=== PATIENT | male | born 1990 | race Caucasian/White ===

== ENCOUNTER 2021-10-13 17:59 | Emergency (ER) | payer BC, OTHER ==
--- NOTE | 2021-10-13 18:35 | EDM.PDOC ---
ED HPI GENERAL MEDICAL PROBLEM - General Chief Complaint: General Stated Complaint: FLU-LIKE SYMPTOMS Time Seen by Provider: 10/13/21 18:15 Source of Information: Reports: Patient History Limitations: Reports: No Limitations - History of Present Illness INITIAL COMMENTS - FREE TEXT/NARRATIVE: 31 YO WM PRESENTS TO ER COMPLAINING OF FEVER/CHILLS WITH BODY ACHES AND HEADACHE X 5 DAYS. PT REPORTS HE RECEIVED THE J AND J VACCINE 5 DAYS AGO AND BY THE AFTERNOON THAT DAY DEVELOPED FATIGUE WITH BODY ACHES AND CHILLS. PT REPORTS E SLEPT MOST OF THE DAY AND THE FOLLOWING DAY, BUT FELT BETTER OVER THE LAST 2 DAYS. PT STATES TODAY HE DEVELOPED A BAD HEADACHE ALONG WITH FEVER/CHILLS. PT DENIES CHEST PAIN OR SHORTNESS OF BREATH. PT DENIES N/V/D. Onset Date: 10/09/21 Duration: Day(s): (5) Location: Reports: Generalized Quality: Reports: Ache Severity: Mild Improves with: Reports: Rest Worsens with: Reports: Movement Associated Symptoms: Reports: Cough, Fever/Chills, Malaise. Denies: Chest Pain, Nausea/Vomiting, Shortness of Breath Treatments [employer]ATOR: Reports: Acetaminophen Generalized Pain Score (Numeric/FACES): 7 - Related Data Allergies Allergy/AdvReac Type Severity Reaction Status Date / Time No Known Drug Allergies Allergy Other Verified 10/13/21 18:29 Home Meds: Home Meds . [No Known Home Meds] 04/15/16 [History] Past Medical History - Past Health History Medical/Surgical History: Denies Medical/Surgical History ED ROS GENERAL - Review of Systems Review Of Systems: See Below Constitutional: Reports: Fever, Chills, Malaise HEENT: Reports: Rhinitis Respiratory: Reports: Cough Cardiovascular: Reports: No Symptoms Endocrine: Reports: No Symptoms GI/Abdominal: Reports: No Symptoms : Reports: No Symptoms Musculoskeletal: Reports: No Symptoms Skin: Reports: No Symptoms Neurological: Reports: No Symptoms Psychiatric: Reports: No Symptoms Hematologic/Lymphatic: Reports: No Symptoms Immunologic: Reports: No Symptoms ED EXAM, GENERAL - Physical Exam Exam: See Below Exam Limited By: No Limitations General Appearance: Alert, WD/WN, No Apparent Distress Ears: Normal External Exam, Normal Canal, Hearing Grossly Normal, Normal TMs Nose: Clear Rhinorrhea Throat/Mouth: Normal Inspection, Normal Lips, Normal Teeth, Normal Gums, Normal Oropharynx, Normal Voice, No Airway Compromise Head: Atraumatic, Normocephalic Neck: Normal Inspection, Supple, Non-Tender, Full Range of Motion Respiratory/Chest: No Respiratory Distress, Lungs Clear, Normal Breath Sounds, No Accessory Muscle Use, Chest Non-Tender Cardiovascular: Normal Peripheral Pulses, Regular Rate, Rhythm, No Edema, No Gallop, No JVD, No Murmur, No Rub GI/Abdominal: Normal Bowel Sounds, Soft, Non-Tender, No Organomegaly, No Distention, No Abnormal Bruit, No Mass Back Exam: Normal Inspection, Full Range of Motion, NT Extremities: Normal Inspection, Normal Range of Motion, Non-Tender, Normal Capillary Refill, No Pedal Edema Neurological: Alert, Oriented, CN II-XII Intact, Normal Cognition, Normal Gait, No Motor/Sensory Deficits Psychiatric: Normal Affect, Normal Mood Skin Exam: Warm, Dry, Intact, Normal Color, No Rash Lymphatic: No Adenopathy Course - Vital Signs Last Recorded V/S: Last Vital Signs Temp 97.5 F 10/13/21 18:20 Pulse 82 10/13/21 19:00 Resp 16 10/13/21 18:20 BP 121/76 10/13/21 19:00 Pulse Ox 95 10/13/21 19:00 - Orders/Labs/Meds Orders: Active Orders 24 hr Category Date Time Status COVID-19/FLU A+B [[facility]] Stat Lab 10/13/21 18:37 Ordered Labs: COVID- POSITIVE INFLUENZA A AND B NEGATIVE Meds: Medications Discontinued Medications Generic Name Dose Route Start Last Admin Trade Name Freq PRN Reason Stop Dose Admin Ketorolac Tromethamine 60 mg 10/13/21 18:37 10/13/21 18:54 Ketorolac 60 Mg/2 Ml Sdv IM 10/13/21 18:38 60 mg ONETIME ONE Administration Departure - Departure Time of Disposition: 19:44 Disposition: Home, Self-Care 01 Condition: Good Clinical Impression: COVID-19 - Discharge Information Referrals: PCP,Unknown [Primary Care Provider] - Forms: ED Department Discharge, ED Return to Work/School Form Additional Instructions: 1. DISCHARGE HOME 2. CALL CLINIC FOR FOLLOW UP AND CONSIDERATION FOR MONOCLONAL ANTIBODY INFUSION 3. ZINC 50MG DAILY 4. MOTRIN 600MG EVERY 6 HOURS AND ALTERNATE WITH TYLENOL 1000MG EVERY 6 HOURS FOR FEVER/CHILLS/HEADACHE 5. VIT C 1000MG TWICE/DAY 6. VIT D 5000IU DAILY 7. ZYRTEC 10MG DAILY FOR COUGH/CONGESTION 8. RETURN TO ER FOR WORSENING SYMPTOMS Sepsis Event Note (ED) - Focused Exam Vital Signs: Vital Signs Temp Pulse Resp BP Pulse Ox 10/13/21 19:00 82 121/76 95 10/13/21 18:45 84 127/83 97 10/13/21 18:30 98 122/81 94 L 10/13/21 18:20 97.5 F 93 16 123/82 94 L - My Orders Last 24 Hours: My Active Orders 10/13/21 18:37 COVID-19/FLU A+B [[facility]] Stat - Assessment/Plan Last 24 Hours: My Active Orders 10/13/21 18:37 COVID-19/FLU A+B [[facility]LE[facility]] Stat Assessment:: 1. COVID-19 INFECTION Plan: 1. DISCHARGE HOME 2. CALL CLINIC FOR FOLLOW UP AND CONSIDERATION FOR MONOCLONAL ANTIBODY INFUSION 3. ZINC 50MG DAILY 4. MOTRIN 600MG EVERY 6 HOURS AND ALTERNATE WITH TYLENOL 1000MG EVERY 6 HOURS FOR FEVER/CHILLS/HEADACHE 5. VIT C 1000MG TWICE/DAY 6. VIT D 5000IU DAILY 7. ZYRTEC 10MG DAILY FOR COUGH/CONGESTION 8. RETURN TO ER FOR WORSENING SYMPTOMS
[2021-10-13] MEDS ORDERED: Ketorolac 60 MG/2 ML SDV IM ONE (18:37)
[2021-10-13 19:05] VITALS: BP 121/76; PULSE 82
[2021-10-13 19:49] LABS: CORONAVIRUS COVID-19 NAA POSITIVE (NEGATIVE)
== END 2021-10-13 19:55 | disposition home or self-care (01) ==
LOC: KA.ED 17:59
DX: U07.1 COVID-19 (principal)
CPT/HCPCS: 0240U; 96372; 99283; J1885